=== PATIENT | female | born 1935 | race Caucasian/White ===

== ENCOUNTER → 2022-07-02 | Outpatient (CLI) | payer MEDICARE, BC, SELFPAY ==
--- NOTE | 2022-07-02 07:17 | ART_ITS ---
Reason For Study: Carotid stenosis Procedure A bilateral lower extremity continuous wave Doppler with analog waveform analysis and ankle brachial indexes. Left Segmental Pressures Left brachial= 181mmHg. Left dorsalis pedis artery = 186mmHg. The left posterior tibial artery waveforms are absent. The left dorsalis pedis waveforms are triphasic. Right Segmental Pressures Right brachial= 174mmHg. Right posterior tibial artery = 138mmHg. Right dorsalis pedis artery = 106mmHg. The right dorsalis pedis waveforms are monophasic. The right posterior tibial artery waveforms are monophasic. Indices The right ankle brachial index by the dorsalis pedis is 0.59. The right ankle brachial index by the posterior tibial artery is 0.76. The left ankle brachial index by the dorsalis pedis is 1.03. VL/Ankle Brachial Index Interpretation Summary Right MARILYNN 0.76, moderate arterial insufficieny. Doppler/PVR waveforms of the ri ght ankle moderately diminished at rest. Left MARILYNN 1.03, normal. Doppler/PVR waveforms of the left ankle normal at rest. Ordering Physician: Francis Hart Performed By: Lala Rose RVT
--- NOTE | 2022-07-02 07:17 | CDU_ITS ---
Reason For Study: Carotid stenosis Rt. Velocities/BP Lt. Velocities/BP Prox CCA 59.8/11.6 cm/sec. Prox CCA 75.4/15.2 cm/sec. Mid CCA 89.4/11.3 cm/sec. Mid CCA 75.4/13.3 cm/sec. Dist CCA 202.9/21.5 cm/sec. Dist CCA 220.8/39.8 cm/sec. Prox ICA 207.8/46.2 cm/sec. Prox ICA 185.2/26.8 cm/sec. Mid ICA 178.1/35.7 cm/sec. Mid ICA 84.5/14.6 cm/sec. Dist ICA 64.5/18.5 cm/sec. Dist ICA 66.5/18.6 cm/sec. Rt. ICA/CCA = 2.32. Lt. ICA/CCA = 2.46. Prox ECA 192.6/6 cm/sec. Prox ECA 211.1 cm/sec. Rt. Vert. 71.8/17 cm/sec. Lt. Vert. 43.3/10.2 cm/sec. Right Extracranial There is heterogeneous, irregular atherosclerotic plaque noted in the right common carotid artery. There is heterogeneous, irregular atherosclerotic plaque noted in the right internal carotid artery. There is heterogeneous, irregular atherosclerotic plaque noted in the right external carotid artery. Antegrade flow is noted in the right vertebral artery. Left Extracranial There is heterogeneous, irregular atherosclerotic plaque noted in the left common carotid artery. There is heterogeneous, irregular atherosclerotic plaque noted in the left internal carotid artery. The left internal carotid artery is not well visualized. There is heterogeneous, irregular atherosclerotic plaque noted in the left external carotid artery. Antegrade flow is noted in the left vertebral artery. Procedure Carotid Duplex [id number]. This is a Carotid Duplex examination using B-mode, color flow and specral Doppler. Exam performed in department. VL/Carotid Duplex Ultrasound Interpretation Summary Moderate (50-69%) stenosis right extracranial internal carotid. Moderate (50-69%) stenosis left extracranial internal carotid. Patent and antegrade vertebrals bilaterally. Ordering Physician: Francis Hart Performed By: Lala Rose RVT
--- NOTE | 2022-07-02 07:17 | ADUL_ITS ---
Reason For Study: S/p left ax-profunda, profunda-AT bypass Left Graft Findings Subclavian artery, distal, 198.4 cm/sec. Axillary artery, inflow, 154.3 cm/sec. Graft 1, prox anastamosis, 122 cm/sec. Graft 1, prox, 32.8 cm/sec. Graft 1, mid, 37.2 cm/sec Graft 1, distal, 30.2 cm/sec. Graft 1, distal anastamosis, 23.2 cm/sec. Graft 2, prox anastamosis, 49.7 cm/sec. Graft 2, prox, 45.8 cm/sec. Graft 2, mid, 37.1 cm/sec. Graft 2, distal, 45 cm/sec. Graft 2, distal anastamosis, 143.6 cm/sec. OUMOU mid, outflow, 85 cm/sec. OUMOU distal, 81.4 cm/sec. Procedure Exam performed in department. VL/US Art Duplex Unilat Lower Ext Interpretation Summary Patent left axillary-profunda bypass with diminished velocities throughout, wit h drop at proximal anastomsosis. Patent left profunda-AT bypass with diminished velocities throughout and doubli ng at the distal anastomosis. Ordering Physician: Francis Hart Performed By: Lala Rose T
--- NOTE | 2022-07-02 07:17 | RDU_ITS ---
Reason For Study: S/p Celiac and SMA stents Aorta Proximal abdominal aorta 2.21 x 2.25 cm . Proximal abdominal aorta peak systolic velocity is 48.7 cm/sec . Distal abdominal aorta 0.97 x 1.00 cm . Distal abdominal aorta peak systolic velocity is 54.2 cm/sec . Celiac artery, 171.6 cm/sec. Hepatic artery, 160.5 cm/sec. Splenic artery, 152.6 cm/sec. SMA, origin, 179.3 cm/sec. SMA, prox, 278 cm/sec. SMA, mid, 208.4 cm/sec. SMA, distal, 180.5 cm/sec. ROSA, origin, 164.2 cm/sec. ROSA, prox, 226.9 cm/sec. ROSA, mid, 157.3 cm/sec. ROSA, distal, 110.9 cm/sec. VL/Renal Artery Duplex Ultrasound Interpretation Summary Celiac artery stent patent with normal velocities and no evidence of any hemody namically significant stenosis. Superior mesenteric artery stent patent with normal velocities and no evidence of any hemodynamically significant stenosis Inferior mesenteric artery patent with normal velocities and no evidence of any hemodynamically significant stenosis Ordering Physician: Francis Hart Performed By: Lala Rose RVT
== END | disposition home or self-care (01) ==
PROVIDERS: Referring Provider Surgery Trauma Surgery; Visit Provider Surgery Trauma Surgery
DX: I65.23 Occlusion and stenosis of bilateral carotid arteries (principal); Z48.812 Encounter for surgical aftercare following surgery on the circulatory system
CPT/HCPCS: 93880; 93922; 93926; 93975

== ENCOUNTER 2023-06-30 10:25 | Emergency (ER) | payer MEDICARE, BC, SELFPAY ==
[2023-06-30 10:27] VITALS: BP 212/144; PULSE 84; RESP 18; TEMP 35.9; O2SAT 97; BMI 22.8
[2023-06-30 11:34] VITALS: BP 220/105; PULSE 113; RESP 16; O2SAT 100
--- NOTE | 2023-06-30 11:41 | EKG12_ITS ---
Test Reason : HIGH BP Blood Pressure : / mmHG Vent. Rate : 105 BPM Atrial Rate : 000 BPM P-R Int : 000 ms QRS Dur : 070 ms QT Int : 332 ms P-R-T Axes : 000 054 -67 degrees QTc Int : 438 ms Atrial fibrillation with rapid ventricular response Nonspecific ST and T wave abnormality Abnormal ECG Confirmed by SANJAY BECKFORD, CASPER ([id number]), editor trade journal CHIDI OSORIO ([id number]) on 07/03/2023 1:51:52 PM Referred By: Confirmed By:CASPER GRACE MD
--- NOTE | 2023-06-30 11:47 | EX.ED.DYSGE1 ---
HPI <GOPAL Acosta - Last Filed: 06/30/23 15:47> History of Present Illness Chief Complaint: Hypertension Narrative Narrative: Patient presenting today due to elevated blood pressure. She was supposed to have a carotid artery ultrasound today due to history of carotid artery stenosis but her blood pressure was elevated so they sent her down to the ED for evaluation. She reports a history of high blood pressure and recently had medication changes. She is unsure what she takes for her blood pressure. She felt a little lightheaded earlier but reports that those symptoms are much improved now. PMH includes atrial fibrillation, carotid artery stenosis, hypertension, and peripheral artery disease. PFSH <GOPAL Acosta - Last Filed: 06/30/23 15:47> PFSH Medical History Acid reflux Arthritis Atrial fibrillation Biliary stenosis Cervical cancer COPD (chronic obstructive pulmonary disease) Coronary artery disease Hiatal hernia High cholesterol History of blood transfusion History of DVT (deep vein thrombosis) History of heart attack Hypertension Thyroid disease Home Medications apixaban 2.5 mg tablet (Eliquis) 2.5 mg PO BID 07/25/22 [History Last Taken Unknown] aspirin 81 mg chewable tablet 81 mg PO DAILY 07/25/22 [History Last Taken Unknown] atorvastatin 20 mg tablet (Lipitor) 20 mg PO DAILY 07/25/22 [History Last Taken Unknown] furosemide 20 mg tablet (Lasix) 20 mg PO DAILY 07/25/22 [History Last Taken Unknown] hydralazine 25 mg tablet 25 mg PO BID 07/25/22 [History Last Taken Unknown] levothyroxine 25 mcg tablet (Synthroid) 25 mcg PO DAILY 07/25/22 [History Last Taken Unknown] magnesium 200 mg tablet 400 mg PO DAILY 07/25/22 [History Last Taken Unknown] pantoprazole 40 mg tablet,delayed release (Protonix) 40 mg PO DAILY 07/25/22 [History Last Taken Unknown] potassium chloride 10 mEq capsule,extended release 10 meq PO DAILY 07/25/22 [History Last Taken Unknown] Allergy/AdvReac Type Severity Reaction Status Date / Time bupropion [From Wellbutrin] Allergy Mild itchy Verified 07/25/22 15:20 amlodipine [From Norvasc] AdvReac Severe Dioriented Verified 02/14/23 10:10 Family History Mother Cancer Father Myocardial infarction Surgical History History of angioplasty (~12/02/16) History of angioplasty (~07/17/17) History of angioplasty (~08/13/18) History of angioplasty (~03/27/17) History of angioplasty (~04/10/17) History of angioplasty (~03/13/21) History of arterial bypass of lower limb (~06/20/18) History of back surgery (~1977) History of cholecystectomy (~2002) History of colonoscopy History of endoscopy History of esophagogastroduodenoscopy (EGD) (~07/14/18) History of hip surgery History of hysterectomy History of removal of ovarian cyst History of surgery Hx of appendectomy (~1956) Hx of CABG Hx of tonsillectomy Social History Smoking Status: Former smoker quit date: 10/20/01 alcohol intake: never substance use type: does not use ROS <GOPAL Acosta - Last Filed: 06/30/23 15:47> ROS ED Constitutional Constitutional ED: Denies chills or fever(s) Eyes Eyes: Denies blurry vision or change in vision Cardiovascular Cardiovascular: Denies chest pain Respiratory/Chest Respiratory/Chest: Denies cough or dyspnea Gastrointestinal Gastrointestinal: Denies abdominal pain, nausea or vomiting Musculoskeletal Musculoskeletal: Denies arthralgias or myalgias Integumentary Denies rash Neurologic Neurologic: Denies confusion, dizziness, paresthesias or weakness EXAM <GOPAL Acosta - Last Filed: 06/30/23 15:47> Physical Exam Const Vital Signs: 06/30/23 10:27 06/30/23 11:33 06/30/23 11:34 Temperature 96.7 F L Temperature Source Temporal Pulse Rate 84 113 H Respiratory Rate 18 16 Respiratory Effort Normal Non-Labored Blood Pressure 212/144 H 220/105 H Blood Pressure Mean 166 143 Pulse Ox 97 100 Oxygen Delivery Method Room Air Room Air 06/30/23 12:34 06/30/23 15:31 Temperature Temperature Source Pulse Rate 69 Respiratory Rate 18 Respiratory Effort Blood Pressure 187/67 H 177/102 H Blood Pressure Mean 107 Pulse Ox 98 Oxygen Delivery Method Room Air Positive well nourished, well developed and no apparent distress General Appearance ED: well developed HEENT Reports normocephalic and head/scalp atraumatic Mouth ED: Yes moist mucous membranes normal Eyes PERRL and EOMs intact bilaterally Neck full ROM and supple Chest Wall inspection of chest normal Resp normal respiratory effort and clear to auscultation bilaterally Cardio Rate: tachycardic Rhythm: abnormal rhythm irregularly irregular GI soft to palpation, non-tender, non-distended and no masses Back/Spine normal ROM and normal to inspection Extremity normal to inspection and full ROM Neuro oriented x3, CN's II-XII intact bilaterally, moves all extremities, no focal motor deficits and no sensory deficits noted Sensorium / Orientation: awake and alert Psych mental status grossly normal and thought process normal Skin no rashes or lesions noted and no wounds <Dr. Francis Maxwell DO - Last Filed: 06/30/23 15:26> Physical Exam Const Vital Signs: 06/30/23 10:27 06/30/23 11:33 06/30/23 11:34 Temperature 96.7 F L Temperature Source Temporal Pulse Rate 84 113 H Respiratory Rate 18 16 Respiratory Effort Normal Non-Labored Blood Pressure 212/144 H 220/105 H Blood Pressure Mean 166 143 Pulse Ox 97 100 Oxygen Delivery Method Room Air Room Air 06/30/23 12:34 06/30/23 15:31 Temperature Temperature Source Pulse Rate 69 Respiratory Rate 18 Respiratory Effort Blood Pressure 187/67 H 177/102 H Blood Pressure Mean 107 Pulse Ox 98 Oxygen Delivery Method Room Air [facility] <GOPAL Acosta - Last Filed: 06/30/23 15:47> [facility] Narrative Medical decision making narrative: Patient presenting today due to elevated blood pressure. She was hypertensive today while at an appointment to have a carotid artery ultrasound performed due to history of stenosis. She does not check her blood pressure regularly and reports that her medication was just recently changed but is not sure what she is taking. In the computer it says that she takes 25 mg hydralazine back daily. Patient is actively in A-fib RVR with a rate of 113. She reports that she does not have a history of A-fib but looking back at her chart, she does. She is on Eliquis. She will be given metoprolol. Labs will be obtained to rule out leukocytosis, anemia, electrolyte abnormality, and ACS. After metoprolol, her heart rate did improve. She did require a dose of hydralazine due to a blood pressure of 212/144, she then was given an additional dose of hydralazine which she takes at home and her blood pressure improved to 177/78. Her rate remained WNL. Her labs show decreased kidney function with no prior labs to compare to. She reports that she feels well, she will be discharged home in stable condition. I have encouraged her to start taking her blood pressure at home so that she can have record of it for her PCP. She is to follow-up with PCP in 3 to 5 days. Lab Data Attestation: I reviewed the patient's lab results. Lab results narrative: Water creatinine 1.86, BUN 34, GFR 27 Labs: Laboratory Results - last 24 hr 06/30/23 11:43 WBC 4.8 RBC 4.17 L Hgb 11.5 L Hct 36.8 L MCV 88.2 MCH 27.6 MCHC 31.3 L RDW Std Deviation 51.3 H RDW Coeff of Sheryl 15.9 H Plt Count 121 L MPV 11.2 Immature Gran % (Auto) 0.200 Neut % (Auto) 60.9 Lymph % (Auto) 24.8 [place] % (Auto) 12.5 H Eos % (Auto) 1.0 Baso % (Auto) 0.6 Absolute Neuts (auto) 2.9 Absolute Lymphs (auto) 1.19 Nucleated RBC % 0 Sodium 143 Potassium 3.6 Chloride 107 Carbon Dioxide 27.0 Anion Gap 9 BUN 34 H Creatinine 1.86 H Estim Creat Clear Calc 15.59 Est GFR (MDRD) Af Amer 33 L Est GFR (MDRD) Non-Af 27 L BUN/Creatinine Ratio 18.3 Glucose 129 H Calcium 8.9 Troponin I High Sens 15 <Dr. Francis Maxwell, DO - Last Filed: 06/30/23 15:26> [facility] Lab Data Labs: Laboratory Results - last 24 hr 06/30/23 11:43 WBC 4.8 RBC 4.17 L Hgb 11.5 L Hct 36.8 L MCV 88.2 MCH 27.6 MCHC 31.3 L RDW Std Deviation 51.3 H RDW Coeff of Sheryl 15.9 H Plt Count 121 L MPV 11.2 Immature Gran % (Auto) 0.200 Neut % (Auto) 60.9 Lymph % (Auto) 24.8 [place] % (Auto) 12.5 H Eos % (Auto) 1.0 Baso % (Auto) 0.6 Absolute Neuts (auto) 2.9 Absolute Lymphs (auto) 1.19 Nucleated RBC % 0 Sodium 143 Potassium 3.6 Chloride 107 Carbon Dioxide 27.0 Anion Gap 9 BUN 34 H Creatinine 1.86 H Estim Creat Clear Calc 15.59 Est GFR (MDRD) Af Amer 33 L Est GFR (MDRD) Non-Af 27 L BUN/Creatinine Ratio 18.3 Glucose 129 H Calcium 8.9 Troponin I High Sens 15 Treatment and Re-Evaluation :: I have personally performed a face to face assessment of the patient and have reviewed the COLBY Note. I performed a substantive portion of the visit including all aspects of the following. My tompkins findings include: History: Patient presents with elevated blood pressure was noticed today. Patient was scheduled to have a procedure done today but her blood pressure was elevated. Patient was then referred to the emergency department. Patient admits to a mild headache. Patient states she had a mild headache yesterday as well. Patient denies any chest pain or shortness of breath. Patient denies any nausea or vomiting. Exam: Vital signs showed elevated blood pressure of 212/144. There is a mild tachycardia of 113. Patient is afebrile. Patient is in no acute distress. Oral mucosa is pink and moist. Neck is supple. Trachea is midline. There is no JVD. Heart was irregularly irregular. Lungs are clear and equal bilaterally. Abdomen is soft. Bowel sounds are normal. There is no tenderness. Cranial nerves II through XII are intact. There are no focal motor or sensory deficits noted. There is no calf tenderness or edema noted. Medical Decision Making: Differential diagnosis includes hypertensive urgency, hypertensive emergency, and accelerated hypertension. EKG will be obtained to assess for cardiac dysrhythmia and cardiac ischemia. CBC will be obtained to assess for leukocytosis and anemia. Basic metabolic profile will be obtained to assess for electrolyte abnormality and renal function. High-sensitivity troponin will be obtained to assess for cardiac ischemia. EKG was obtained. On my independent interpretation, it shows atrial fibrillation with a rate of 105. QRS interval and QTc intervals are within normal limits. [place] is normal. There are nonspecific ST-T wave changes. CBC was reviewed. There is a mild anemia with a hemoglobin of 11.5 and hematocrit 36.8. Platelets were slightly low at 121. The remainder is within normal limits. Basic metabolic profile was reviewed. BUN was 34 and creatinine was 1.86. High-sensitivity troponin was reviewed and was normal at 15. Patient was given a dose of metoprolol initially. Patient's heart rate improved. Patient's blood pressure improved to 187/67. Patient was given a dose of hydralazine. Patient's blood pressure improved after this. Patient is feeling better on reevaluation. Patient was instructed to continue to monitor her blood pressure at home. Patient was instructed to follow-up with her primary care physician in 5 to 7 days. Patient was instructed return if worse in any way. Patient understood and was agreeable with the plan. All questions were answered. Discharge Plan Triage Chief Complaint: Hypertension ED Midlevel Provider: Theresa Samuels ED Provider: Francis Maxwell Dx/Rx/DC Orders Clinical Impression: High blood pressure Instructions: ED High Blood Pressure Hypertension Primary Care Provider: Care Physician,Radha Primary Referrals: NOT,DEFINED [Non-Staff] - Activity Restrictions/Additional Instructions: Please follow-up with your PCP in the next 3 to 5 days and return for any worsening of your symptoms. Please begin keeping track of your blood pressure so you can present this to your PCP. Disposition Disposition: Home, Self Care Discharge Date/Time: 06/30/23 15:31
--- NOTE | 2023-06-30 11:53 | NURSING ---
NO OLD EKGS
[2023-06-30 12:02] LABS: Absolute Lymphocyte Count 1.19 X10^3/uL (0.83-4.51); Absolute Neutrophil Count 2.9 X10^3/uL (2.0-7.7); Basophil# 0.03 X10^3/uL; Basophil% 0.6 % (0-1); Eosinophil# 0.05 X10^3/uL; Hematocrit 36.8 % (37-47); Hemoglobin 11.5 g/dL (12.0-15.0); Lymphocyte # 1.19 X10^3/ul (0.83-4.51); Lymphocyte % 24.8 % (19-41); Mean Corp Hgb Conc 31.3 g/dL (32-36); Mean Corpuscular Hgb 27.6 pg (27.0-32.0); Mean Corpuscular Volume 88.2 fL (81-99); Mean Platelet Vol. 11.2 fl (6.2-12.0); Monocyte% 12.5 % (0-10); NRBC Flagged by Analyzer 0 % (0-5); Neutrophil # 2.92 X10^3/uL (2.7-7.7); Neutrophil % 60.9 % (47-70); Platelet Count 121 K/mm3 (150-450); RBC Distribution Width CV 15.9 % (11.6-14.6); RBC Distribution Width SD 51.3 fl (35.1-43.9); Red Blood Count 4.17 M/mm3 (4.2-5.4); White Blood Count 4.8 K/mm3 (4.4-11.0)
[2023-06-30] MEDS: Metoprolol Tartrate 5 MG/5 ML Vial IV (12:06)
[2023-06-30 12:12] LABS: Anion Gap 9 (5-15); BUN 34 mg/dL (7-18); BUN/Creat Ratio 18.3 RATIO (10-20); Calcium,Total 8.9 mg/dL (8.5-10.1); Chloride 107 mmol/L (98-107); Creatinine, Serum 1.86 mg/dL (0.55-1.02); EST Glomerular Filtration Rate 27 mL/min (>60); Est Glom Filt Rate - Afr Amer 33 mL/min (>60); Estimated Creatinine Clearance 15.59 ml/min; Glucose 129 mg/dL (74-106); Potassium 3.6 mmol/L (3.5-5.1); Sodium Level 143 mmol/L (136-145)
[2023-06-30 12:24] LABS: Troponin-I HS 15 pg/mL (3.0-54.0)
[2023-06-30 12:34] VITALS: BP 187/67; PULSE 69; RESP 18; O2SAT 98
[2023-06-30] MEDS: hydrALAZINE 20 MG/ML Vial 5 MG IV (13:51)
[2023-06-30 15:31] VITALS: BP 177/102
== END 2023-06-30 15:31 | disposition home or self-care (01) ==
PROVIDERS: Physician Assistant; Emergency Provider Emergency Medicine; Visit Provider Emergency Medicine
DX: I10 Essential (primary) hypertension (principal); I70.222 Atherosclerosis of native arteries of extremities with rest pain, left leg; K55.1 Chronic vascular disorders of intestine; I25.10 Atherosclerotic heart disease of native coronary artery without angina pectoris; Z87.891 Personal history of nicotine dependence; Z86.718 Personal history of other venous thrombosis and embolism
CPT/HCPCS: 80048; 84484; 85025; 93005; 93923; 93926; 93975; 96374; 96375; 99283; A4216

== ENCOUNTER → 2023-06-30 | Outpatient (CLI) | payer MEDICARE, BC, SELFPAY ==
--- NOTE | 2023-06-30 07:54 | RDU_ITS ---
Reason For Study: s/p Celiac and SMA Stents Aorta Proximal abdominal aorta 1.69cm x 1.66cm . Proximal abdominal aorta peak systolic velocity is 56 cm/sec Celiac artery, 239 cm/sec. Hepatic artery, 189 cm/sec. Splenic artery, 142 cm/sec. SMA, origin, 199 cm/sec. SMA, prox, 258 cm/sec. SMA, mid, 235 cm/sec. SMA, distal, 212 cm/sec. ROSA, origin, 126 cm/sec. ROSA, prox, 257 cm/sec. ROSA, mid, 212 cm/sec. ROSA, distal, 245 cm/sec. VL/Renal Artery Duplex Ultrasound Interpretation Summary Celiac artery patent with normal velocities and no evidence of stenosis Superior mesenteric artery patent with normal velocities and no evidence of damaris nosis Inferior mesenteric artery patent with normal velocities and no evidence of damaris nosis Ordering Physician: Francis Hart Referring Physician: Francis Hrat Performed By: Josiane Ocampo, RICHY, RVT
--- NOTE | 2023-06-30 07:54 | ART_ITS ---
Reason For Study: s/p Lt Axillary-Profunda, Profunda-OUMOU Bypass Procedure A bilateral lower extremity continuous wave Doppler with analog waveform analysis,segmental pressures,and ankle brachial indexes without exercise. Left Segmental Pressures Left brachial= 206mmHg. Left dorsalis pedis artery = 205mmHg. Left digit = 162 mmHg. Right Segmental Pressures Right brachial= 216mmHg. Right posterior tibial artery = 163mmHg. Right dorsalis pedis artery = 125mmHg. Right digit = 68 mmHg. Indices The right ankle brachial index by the posterior tibial artery is 0.75. The right ankle brachial index by the dorsalis pedis is 0.58. The right digital-brachial index is 0.31. The left ankle brachial index by the dorsalis pedis is 0.95. The left digital-brachial index is 0.75. VL/Lower Ext Art Exam w/o Exercis Interpretation Summary Right MARILYNN 0.75, moderate arterial insufficiency. Doppler/PVR waveforms of the r ight ankle moderately diminished at rest. Left MARILYNN 0.95, mild arterial insufficiency. Doppler/PVR waveforms of the left a nkle mildly diminished at rest. Posterior tibial artery not detected Ordering Physician: Lily Hart Referring Physician: LILY HART MD Performed By: Josiane Ocampo RD/RVT
--- NOTE | 2023-06-30 07:54 | ADUL_ITS ---
Reason For Study: s/p Lt Axillary-Profunda, Profunda-OUMOU Bypass Left Graft Findings Subclavian artery, distal, 146 cm/sec. Axillary artery, inflow, 163 cm/sec. Graft 1, prox anastamosis, 154 cm/sec. Graft 1, prox, 47 cm/sec. Graft 1, mid, 28 cm/sec Graft 1, distal, 32 cm/sec. Graft 1, distal anastamosis, 22 cm/sec. Graft 2, prox anastamosis, 55 cm/sec. Graft 2, prox, 46 cm/sec. Graft 2, mid, 40 cm/sec. Graft 2, distal, 44 cm/sec. Graft 2, distal anastamosis, 28 cm/sec. OUMOU mid, outflow, 100 cm/sec. OUMOU distal, 97 cm/sec. DPA, 67 cm/sec. /US Art Duplex Unilat Lower Ext Interpretation Summary Left axillary-profunda, profunda-AT bypasses patent with diminished velocities but normal waveforms throughout. Ordering Physician: Francis Hart Referring Physician: Francis Hart Performed By: Josiane Ocampo, RDCS, RVT
== END | disposition home or self-care (01) ==
PROVIDERS: Referring Provider Surgery Trauma Surgery; Visit Provider Surgery Trauma Surgery
DX: I70.222 Atherosclerosis of native arteries of extremities with rest pain, left leg (principal)
CPT/HCPCS: 93923; 93926; 93975